=== PATIENT | female | born 1965 | race Caucasian/White ===

== ENCOUNTER 2017-05-19 23:05 | Inpatient (IN) | payer MEDICARE ==
[~2017-05-19] VITALS: Ht 160 cm; Wt 39.2 kg
[2017-05-19] MEDS ORDERED: SODIUM CHLORIDE 0.9% 1,000 ML IV ONE (23:26)
[2017-05-19] MEDS ORDERED: ONDANSETRON 2MG/ML, 2ML IVPush ONE (23:30)
[2017-05-19] MEDS ORDERED: SODIUM CHLORIDE FLUSH 10ML SYR IVF ONE (23:30)
[2017-05-19] MEDS ORDERED: ONDANSETRON 2MG/ML, 2ML ONE (23:33)
[2017-05-19] MEDS ORDERED: morphine SULFATE 10 MG/ML, 1ML ONE (23:34)
[2017-05-19] MEDS: MORPHINE SULFATE 4 MG/ML, 1ML IVPush PRN (23:50)
[2017-05-20] MEDS ORDERED: LEVE500V6 PO
[2017-05-20] MEDS ORDERED: OXCA600T PO (00:01)
[2017-05-20] MEDS ORDERED: METH40TA3 PO (00:01)
[2017-05-20] MEDS ORDERED: DEXT10TA7 PO (00:05)
[2017-05-20 00:25] LABS: DAU SCREEN DISCLAIMER
[2017-05-20 00:31] LABS: PATH.CAST-FLAG NOT PRESENT; SPERM-FLAG NOT PRESENT; SRC-FLAG NOT PRESENT; XTAL-FLAG NOT PRESENT; YLC-FLAG NOT PRESENT
[2017-05-20] MEDS ORDERED: morphine SULFATE 10 MG/ML, 1ML ONE (00:39)
[2017-05-20] MEDS: MORPHINE SULFATE 4 MG/ML, 1ML IVPush PRN (00:44)
[2017-05-20 01:09] LABS: HEMATOCRIT 39.3 % (34.6-47.8); HEMOGLOBIN 13.2 g/dL (11.7-16.4); WHITE BLOOD COUNT 16.6 x10^3/uL (3.4-10)
[2017-05-20 01:11] LABS: DIFF TOTAL CELLS COUNTED 100 CELL DIFF
[2017-05-20 01:30] LABS: ASPARTATE AMINO TRANSFERASE 36 U/L (15-37); BLOOD UREA NITROGEN 16 mg/dL (7-18)
[2017-05-20 01:36] LABS: VERIFY COUNTS? YES
[2017-05-20] MEDS ORDERED: ONDANSETRON 2MG/ML, 2ML IVPush PRN ×2 (02:30→22:30)
[2017-05-20] MEDS ORDERED: hydrALAzine 20 MG/ML, 1ML IVPush PRN (02:30)
[2017-05-20 02:55] VITALS: BP 128/83
[2017-05-20] MEDS: HYDROmorphone 2 MG/ML, 1ML IVPush PRN ×5 (03:24→17:07)
[2017-05-20] MEDS: SODIUM CHLORIDE 0.9% 1,000 ML IV SCH ×2 (03:24→15:36)
[2017-05-20] MEDS ORDERED: LEVETIRACETAM 1,000 MG in SODIUM CHLORIDE 0.9% 100 ML IV SCH (03:30)
[2017-05-20] MEDS: LORazepam 2 MG/ML, 1ML IVPush PRN ×6 (05:56→20:17)
[2017-05-20] MEDS: PANTOPRAZOLE 40 MG IV IVPush SCH (08:00)
[2017-05-20 08:22] VITALS: BP 131/81
[2017-05-20] MEDS ORDERED: VANCOMYCIN PMX 1GM/200ML 200 ML IV ONE (09:00)
[2017-05-20] MEDS ORDERED: ERTAPENEM 1 GM in SODIUM CHLORIDE 0.9% 50 ML IV SCH (09:00)
[2017-05-20] MEDS ORDERED: LINEZOLID PMX 600MG/300ML 300 ML IV SCH (09:00)
[2017-05-20] MEDS: ENOXAPARIN 40 MG/0.4 ML SQ SCH (09:00)
[2017-05-20] MEDS ORDERED: ACETAMINOPHEN 650 MG SUPP ONE (09:13)
[2017-05-20] MEDS: ACETAMINOPHEN 650 MG SUPP PR PRN ×2 (09:19→20:17)
[2017-05-20] MEDS: METHADONE 10 MG TABLET PO SCH ×2 (09:30→21:00)
[2017-05-20] MEDS ORDERED: LEVETIRACETAM 500 MG TABLET PO SCH (09:30)
[2017-05-20] MEDS: OXCARBAZEPINE 150 MG TABLET PO SCH (09:30)
[2017-05-20] MEDS: SODIUM CHLORIDE FLUSH 10ML SYR IVF SCH (10:07)
[2017-05-20] MEDS: LEVETIRACETAM 1,000 MG in SODIUM CHLORIDE 0.9% 100 ML IV SCH (12:02)
[2017-05-20] MEDS ORDERED: LIDOCAINE 1%, 20ML ONE (16:03)
[2017-05-20] MEDS: DAPTOMYCIN 260 MG in SODIUM CHLORIDE 0.9% 100 ML IVPB SCH (16:30)
[2017-05-20 18:03] VITALS: BP 134/76
[2017-05-20 20:00] VITALS: BP 166/100
[2017-05-20] MEDS ORDERED: SUCCINYLCHOLINE 20 MG/ML, 10ML ONE (20:45)
[2017-05-20] MEDS ORDERED: LIDOCAINE-MPF 2% ,5ML ONE (20:45)
[2017-05-20] MEDS ORDERED: PROPOFOL 10 MG/ML, 20ML ONE (20:45)
[2017-05-20] MEDS ORDERED: HYDROmorphone 1 MG/ML, 1ML IV PRN (22:30)
[2017-05-20] MEDS ORDERED: LABETALOL 5MG/ML, 20ML IV PRN (22:30)
[2017-05-20] MEDS ORDERED: LORazepam 2 MG/ML, 1ML IVPush PRN (22:30)
[2017-05-20] MEDS ORDERED: PROMETHAZINE 25 MG/ML, 1ML IV PRN (22:30)
[2017-05-20] MEDS ORDERED: MEPERIDINE/PF 25MG/0.5ML IVPush PRN (22:30)
[2017-05-20] MEDS ORDERED: FENTANYL PF 100 MCG/2ML IV PRN (22:30)
[2017-05-20] MEDS ORDERED: hydrALAzine 20 MG/ML, 1ML IV PRN (22:30)
[2017-05-21 00:14] LABS: GLUCOSE, CSF 88 mg/dL (40-80)
[2017-05-21] MEDS: HYDROmorphone 2 MG/ML, 1ML IVPush PRN ×7 (01:01→22:38)
[2017-05-21] MEDS: LEVETIRACETAM 1,000 MG in SODIUM CHLORIDE 0.9% 100 ML IV SCH ×2 (01:26→12:11)
[2017-05-21] MEDS: OXCARBAZEPINE 150 MG TABLET PO SCH ×3 (01:26→21:00)
[2017-05-21] MEDS: SODIUM CHLORIDE FLUSH 10ML SYR IVF SCH ×3 (01:26→21:00)
[2017-05-21] MEDS: LORazepam 2 MG/ML, 1ML IVPush PRN ×5 (06:23→21:27)
[2017-05-21 06:45] VITALS: BP 154/80
[2017-05-21 07:35] LABS: ASPARTATE AMINO TRANSFERASE 26 U/L (15-37); BLOOD UREA NITROGEN 14 mg/dL (7-18)
[2017-05-21] MEDS: PANTOPRAZOLE 40 MG IV IVPush SCH (07:42)
[2017-05-21] MEDS: ACETAMINOPHEN 650 MG SUPP PR PRN (07:46)
[2017-05-21 07:56] LABS: HEMATOCRIT 36.3 % (34.6-47.8); HEMOGLOBIN 12.2 g/dL (11.7-16.4); WHITE BLOOD COUNT 14.7 x10^3/uL (3.4-10)
[2017-05-21] MEDS: METHADONE 10 MG TABLET PO SCH ×2 (09:08→21:00)
[2017-05-21] MEDS: ENOXAPARIN 40 MG/0.4 ML SQ SCH (09:14)
[2017-05-21] MEDS: SODIUM CHLORIDE 0.9% 1,000 ML IV SCH (09:23)
[2017-05-21] MEDS ORDERED: FILTER 0.22 MICRON FOR PHENYTOIN IV PRN (17:30)
[2017-05-21] MEDS ORDERED: PHENYTOIN SODIUM 1,000 MG in SODIUM CHLORIDE 0.9% 100 ML IV ONE (18:00)
[2017-05-21] MEDS: DAPTOMYCIN 260 MG in SODIUM CHLORIDE 0.9% 100 ML IVPB SCH (18:33)
[2017-05-21 20:00] VITALS: BP 123/73
[2017-05-22] MEDS: LEVETIRACETAM 1,000 MG in SODIUM CHLORIDE 0.9% 100 ML IV SCH ×3 (00:02→23:34)
[2017-05-22] MEDS: LORazepam 2 MG/ML, 1ML IVPush PRN ×2 (01:16→06:45)
[2017-05-22] MEDS: SODIUM CHLORIDE 0.9% 1,000 ML IV SCH ×2 (01:31→14:35)
[2017-05-22 02:00] VITALS: BP 148/84
[2017-05-22] MEDS: HYDROmorphone 2 MG/ML, 1ML IVPush PRN ×2 (03:27→22:10)
[2017-05-22 06:24] LABS: HEMOGLOBIN 13.4 g/dL (11.7-16.4); WHITE BLOOD COUNT 12.7 x10^3/uL (3.4-10)
[2017-05-22 06:32] LABS: BLOOD UREA NITROGEN 9 mg/dL (7-18)
[2017-05-22 06:36] LABS: ASPARTATE AMINO TRANSFERASE 32 U/L (15-37)
[2017-05-22 06:47] VITALS: BP 158/89
[2017-05-22] MEDS: METHADONE 10 MG TABLET PO SCH ×2 (09:00→21:00)
[2017-05-22] MEDS: SODIUM CHLORIDE FLUSH 10ML SYR IVF SCH ×2 (09:00→21:00)
[2017-05-22] MEDS: OXCARBAZEPINE 150 MG TABLET PO SCH ×2 (09:00→21:00)
[2017-05-22] MEDS: PANTOPRAZOLE 40 MG IV IVPush SCH (09:00)
[2017-05-22] MEDS: ENOXAPARIN 40 MG/0.4 ML SQ SCH (09:00)
[2017-05-22] MEDS: CEFAZOLIN PMX 2GM/50ML 50 ML IVPB SCH (16:17)
[2017-05-22 20:00] VITALS: BP 156/78
[2017-05-23] MEDS: CEFAZOLIN PMX 2GM/50ML 50 ML IVPB SCH ×3 (00:13→16:14)
[2017-05-23 02:00] VITALS: BP 143/90
[2017-05-23] MEDS: LORazepam 2 MG/ML, 1ML IVPush PRN ×4 (02:08→17:04)
[2017-05-23] MEDS: SODIUM CHLORIDE 0.9% 1,000 ML IV SCH ×2 (06:38→21:34)
[2017-05-23] MEDS: ENOXAPARIN 40 MG/0.4 ML SQ SCH (08:10)
[2017-05-23] MEDS: PANTOPRAZOLE 40 MG IV IVPush SCH (08:10)
[2017-05-23] MEDS: SODIUM CHLORIDE FLUSH 10ML SYR IVF SCH ×2 (08:53→21:00)
[2017-05-23] MEDS: METHADONE 10 MG TABLET PO SCH ×2 (08:53→21:00)
[2017-05-23] MEDS: OXCARBAZEPINE 150 MG TABLET PO SCH ×2 (08:53→21:00)
[2017-05-23] MEDS: HYDROmorphone 2 MG/ML, 1ML IVPush PRN ×2 (10:55→21:34)
[2017-05-23] MEDS: LEVETIRACETAM 1,000 MG in SODIUM CHLORIDE 0.9% 100 ML IV SCH ×2 (12:31→23:28)
[2017-05-23 22:33] VITALS: BP 136/91
[2017-05-24] MEDS: CEFAZOLIN PMX 2GM/50ML 50 ML IVPB SCH ×3 (00:36→15:41)
[2017-05-24] MEDS: HYDROmorphone 2 MG/ML, 1ML IVPush PRN ×6 (01:58→21:30)
[2017-05-24] MEDS: LORazepam 2 MG/ML, 1ML IVPush PRN ×4 (06:33→21:23)
[2017-05-24 08:27] VITALS: BP 130/82
[2017-05-24] MEDS: ENOXAPARIN 40 MG/0.4 ML SQ SCH (08:55)
[2017-05-24] MEDS: PANTOPRAZOLE 40 MG IV IVPush SCH (08:55)
[2017-05-24] MEDS: METHADONE 10 MG TABLET PO SCH ×2 (08:58→21:00)
[2017-05-24] MEDS: SODIUM CHLORIDE FLUSH 10ML SYR IVF SCH ×2 (08:58→21:33)
[2017-05-24] MEDS: OXCARBAZEPINE 150 MG TABLET PO SCH ×2 (08:58→21:29)
[2017-05-24] MEDS: SODIUM CHLORIDE 0.9% 1,000 ML IV SCH (11:29)
[2017-05-24] MEDS: LEVETIRACETAM 1,000 MG in SODIUM CHLORIDE 0.9% 100 ML IV SCH ×2 (11:29)
[2017-05-24 16:35] VITALS: BP 133/83
[2017-05-24 19:22] VITALS: BP 113/75
[2017-05-25 00:18] VITALS: BP 114/70
[2017-05-25] MEDS: CEFAZOLIN PMX 2GM/50ML 50 ML IVPB SCH ×3 (00:54→16:42)
[2017-05-25] MEDS: SODIUM CHLORIDE 0.9% 1,000 ML IV SCH ×2 (00:54→16:42)
[2017-05-25] MEDS: HYDROmorphone 2 MG/ML, 1ML IVPush PRN ×3 (01:29→10:06)
[2017-05-25 05:31] LABS: HEMATOCRIT 24.9 % (34.6-47.8); HEMOGLOBIN 8.5 g/dL (11.7-16.4); WHITE BLOOD COUNT 6.3 x10^3/uL (3.4-10)
[2017-05-25 05:42] LABS: ASPARTATE AMINO TRANSFERASE 34 U/L (15-37); BLOOD UREA NITROGEN 7 mg/dL (7-18)
[2017-05-25] MEDS: LORazepam 2 MG/ML, 1ML IVPush PRN ×3 (05:54→18:00)
[2017-05-25] MEDS ORDERED: POTASSIUM CHLORIDE 40 MEQ in SODIUM CHLORIDE 0.9% 500 ML IV ONE (06:30)
[2017-05-25 08:03] VITALS: BP 114/72
[2017-05-25] MEDS: PANTOPRAZOLE 40 MG IV IVPush SCH (08:24)
[2017-05-25] MEDS: METHADONE 10 MG TABLET PO SCH ×2 (08:25→20:22)
[2017-05-25] MEDS: ENOXAPARIN 40 MG/0.4 ML SQ SCH (08:25)
[2017-05-25] MEDS: SODIUM CHLORIDE FLUSH 10ML SYR IVF SCH ×2 (08:25→20:21)
[2017-05-25] MEDS: OXCARBAZEPINE 150 MG TABLET PO SCH ×2 (08:25→20:22)
[2017-05-25] MEDS: LEVETIRACETAM 1,000 MG in SODIUM CHLORIDE 0.9% 100 ML IV SCH ×3 (11:31→23:58)
[2017-05-25 13:58] VITALS: BP 117/74
[2017-05-25] MEDS: POTASSIUM CHLORIDE 20 MEQ PACKET PO SCH (17:00)
[2017-05-25] MEDS ORDERED: MAGNESIUM SULFATE PMX 2GM/50ML 50 ML IV ONE (18:00)
[2017-05-25 18:58] VITALS: BP 127/85
[2017-05-25] MEDS ORDERED: hydrALAzine 20 MG/ML, 1ML IVPush PRN (20:00)
[2017-05-25] MEDS ORDERED: ONDANSETRON 2MG/ML, 2ML IVPush PRN (20:00)
[2017-05-25 20:07] LABS: COCCIDIOIDES AB BY CF <1:2 (<1:2)
[2017-05-25] MEDS ORDERED: POTASSIUM PHOSPHATE 44 MEQ in SODIUM CHLORIDE 0.9% 500 ML IV ONE (21:00)
[2017-05-26] MEDS: CEFAZOLIN PMX 2GM/50ML 50 ML IVPB SCH ×3 (00:33→16:12)
[2017-05-26 00:59] VITALS: BP 101/68
[2017-05-26] MEDS: LORazepam 2 MG/ML, 1ML IVPush PRN ×4 (03:59→20:19)
[2017-05-26] MEDS: HYDROmorphone 2 MG/ML, 1ML IVPush PRN ×3 (04:07→17:44)
[2017-05-26 07:07] VITALS: BP 113/70
[2017-05-26 07:33] LABS: HEMATOCRIT 24.2 % (34.6-47.8); HEMOGLOBIN 8.2 g/dL (11.7-16.4); WHITE BLOOD COUNT 6.1 x10^3/uL (3.4-10)
[2017-05-26 07:41] LABS: BLOOD UREA NITROGEN 3 mg/dL (7-18)
[2017-05-26] MEDS: ENOXAPARIN 40 MG/0.4 ML SQ SCH (09:52)
[2017-05-26] MEDS: PANTOPRAZOLE 40 MG IV IVPush SCH (09:53)
[2017-05-26] MEDS: POTASSIUM CHLORIDE 20 MEQ PACKET PO SCH ×2 (09:53→17:51)
[2017-05-26] MEDS: METHADONE 10 MG TABLET PO SCH ×2 (09:53→20:08)
[2017-05-26] MEDS: OXCARBAZEPINE 150 MG TABLET PO SCH ×2 (09:53→20:08)
[2017-05-26] MEDS: SODIUM CHLORIDE 0.9% 1,000 ML IV SCH (09:54)
[2017-05-26] MEDS: SODIUM CHLORIDE FLUSH 10ML SYR IVF SCH ×2 (09:55→20:08)
[2017-05-26] MEDS ORDERED: POTASSIUM PHOSPHATE 44 MEQ in SODIUM CHLORIDE 0.9% 500 ML IV ONE (11:00)
[2017-05-26 12:20] VITALS: BP 99/68
[2017-05-26] MEDS: LEVETIRACETAM 1,000 MG in SODIUM CHLORIDE 0.9% 100 ML IV SCH (13:42)
[2017-05-26] MEDS ORDERED: ACETAMINOPHEN 650 MG SUPP PR PRN (18:30)
[2017-05-26] MEDS ORDERED: ONDANSETRON 2MG/ML, 2ML IVPush PRN (18:30)
[2017-05-26] MEDS ORDERED: hydrALAzine 20 MG/ML, 1ML IVPush PRN (18:30)
[2017-05-26 20:29] VITALS: BP 125/78
[2017-05-27] MEDS: CEFAZOLIN PMX 2GM/50ML 50 ML IVPB SCH ×3 (00:04→16:40)
[2017-05-27] MEDS: D5%-0.45NACL+KCL 20MEQ 1,000 ML IV SCH ×2 (00:04→15:33)
[2017-05-27] MEDS: LEVETIRACETAM 1,000 MG in SODIUM CHLORIDE 0.9% 100 ML IV SCH ×3 (01:26→23:16)
[2017-05-27 03:39] VITALS: BP 134/86
[2017-05-27] MEDS: HYDROmorphone 2 MG/ML, 1ML IVPush PRN ×4 (03:45→19:39)
[2017-05-27 04:51] LABS: HEMATOCRIT 23.5 % (34.6-47.8); WHITE BLOOD COUNT 7.5 x10^3/uL (3.4-10)
[2017-05-27 05:02] LABS: BLOOD UREA NITROGEN 4 mg/dL (7-18)
[2017-05-27 06:42] VITALS: BP 105/69
[2017-05-27] MEDS: PANTOPRAZOLE 40 MG IV IVPush SCH (07:48)
[2017-05-27] MEDS: METHADONE 10 MG TABLET PO SCH ×2 (09:17→21:43)
[2017-05-27] MEDS: POTASSIUM CHLORIDE 20 MEQ PACKET PO SCH (09:17)
[2017-05-27] MEDS: SODIUM CHLORIDE FLUSH 10ML SYR IVF SCH ×2 (09:17→19:40)
[2017-05-27] MEDS: OXCARBAZEPINE 150 MG TABLET PO SCH ×2 (09:17→21:42)
[2017-05-27] MEDS: ENOXAPARIN 40 MG/0.4 ML SQ SCH (09:17)
[2017-05-27] MEDS: LORazepam 2 MG/ML, 1ML IVPush PRN (09:57)
[2017-05-27] MEDS ORDERED: POTASSIUM PHOSPHATE 44 MEQ in SODIUM CHLORIDE 0.9% 500 ML IV ONE (11:00)
[2017-05-27 12:46] VITALS: BP 122/79
[2017-05-27 19:27] VITALS: BP 122/60
[2017-05-28] MEDS: CEFAZOLIN PMX 2GM/50ML 50 ML IVPB SCH ×3 (00:45→18:17)
[2017-05-28 01:11] VITALS: BP 119/75
[2017-05-28] MEDS: HYDROmorphone 2 MG/ML, 1ML IVPush PRN ×3 (02:14→18:18)
[2017-05-28] MEDS: LORazepam 2 MG/ML, 1ML IVPush PRN ×5 (02:22→17:04)
[2017-05-28] MEDS: D5%-0.45NACL+KCL 20MEQ 1,000 ML IV SCH (05:35)
[2017-05-28 05:50] LABS: HEMATOCRIT 25.1 % (34.6-47.8); HEMOGLOBIN 8.8 g/dL (11.7-16.4); WHITE BLOOD COUNT 9.3 x10^3/uL (3.4-10)
[2017-05-28 06:06] LABS: ASPARTATE AMINO TRANSFERASE 48 U/L (15-37); BLOOD UREA NITROGEN 4 mg/dL (7-18)
[2017-05-28 07:30] VITALS: BP 149/81
[2017-05-28] MEDS: PANTOPRAZOLE 40 MG IV IVPush SCH (08:17)
[2017-05-28] MEDS: SODIUM CHLORIDE FLUSH 10ML SYR IVF SCH ×2 (09:00→20:49)
[2017-05-28] MEDS: METHADONE 10 MG TABLET PO SCH ×2 (10:31→20:49)
[2017-05-28] MEDS: OXCARBAZEPINE 150 MG TABLET PO SCH ×2 (10:31→20:49)
[2017-05-28] MEDS: ENOXAPARIN 40 MG/0.4 ML SQ SCH (10:35)
[2017-05-28] MEDS: LEVETIRACETAM 1,000 MG in SODIUM CHLORIDE 0.9% 100 ML IV SCH (12:12)
[2017-05-28 13:44] VITALS: BP 112/74
[2017-05-28 18:51] VITALS: BP 132/76
[2017-05-29] MEDS: LEVETIRACETAM 1,000 MG in SODIUM CHLORIDE 0.9% 100 ML IV SCH ×2 (00:06→12:33)
[2017-05-29] MEDS: D5%-0.45NACL+KCL 20MEQ 1,000 ML IV SCH ×2 (00:06→16:44)
[2017-05-29 02:00] VITALS: BP 121/81
[2017-05-29] MEDS: CEFAZOLIN PMX 2GM/50ML 50 ML IVPB SCH ×3 (02:25→18:11)
[2017-05-29] MEDS: LORazepam 2 MG/ML, 1ML IVPush PRN (03:35)
[2017-05-29] MEDS: HYDROmorphone 2 MG/ML, 1ML IVPush PRN ×2 (04:04→21:51)
[2017-05-29 07:26] VITALS: BP 105/70
[2017-05-29] MEDS: METHADONE 10 MG TABLET PO SCH ×2 (09:30→20:14)
[2017-05-29] MEDS: PANTOPRAZOLE 40 MG IV IVPush SCH (09:30)
[2017-05-29] MEDS: ENOXAPARIN 40 MG/0.4 ML SQ SCH (09:30)
[2017-05-29] MEDS: SODIUM CHLORIDE FLUSH 10ML SYR IVF SCH ×2 (09:30→20:13)
[2017-05-29] MEDS: OXCARBAZEPINE 150 MG TABLET PO SCH ×2 (09:30→20:14)
[2017-05-29 14:24] VITALS: BP 121/82
[2017-05-29 19:18] VITALS: BP 131/82
[2017-05-30] MEDS: LEVETIRACETAM 1,000 MG in SODIUM CHLORIDE 0.9% 100 ML IV SCH ×2 (00:40→13:53)
[2017-05-30 01:56] VITALS: BP 120/76
[2017-05-30] MEDS: CEFAZOLIN PMX 2GM/50ML 50 ML IVPB SCH ×3 (02:27→20:17)
[2017-05-30] MEDS: HYDROmorphone 2 MG/ML, 1ML IVPush PRN ×6 (02:27→20:38)
[2017-05-30 05:30] LABS: HEMOGLOBIN 9.2 g/dL (11.7-16.4); WHITE BLOOD COUNT 12.3 x10^3/uL (3.4-10)
[2017-05-30 05:42] LABS: BLOOD UREA NITROGEN 7 mg/dL (7-18)
[2017-05-30 07:54] VITALS: BP 128/82
[2017-05-30] MEDS: ENOXAPARIN 40 MG/0.4 ML SQ SCH (09:00)
[2017-05-30] MEDS: PANTOPRAZOLE 40 MG IV IVPush SCH (09:35)
[2017-05-30] MEDS: D5%-0.45NACL+KCL 20MEQ 1,000 ML IV SCH (09:35)
[2017-05-30] MEDS: SODIUM CHLORIDE FLUSH 10ML SYR IVF SCH ×2 (09:35→20:19)
[2017-05-30] MEDS: METHADONE 10 MG TABLET PO SCH ×2 (09:36→09:52)
[2017-05-30] MEDS: OXCARBAZEPINE 150 MG TABLET PO SCH ×2 (09:52→20:17)
[2017-05-30] MEDS: LORazepam 2 MG/ML, 1ML IVPush PRN ×2 (13:53→21:14)
[2017-05-30 14:10] VITALS: BP 120/76
[2017-05-30 20:00] VITALS: BP 113/77
[2017-05-31] MEDS: LORazepam 2 MG/ML, 1ML IVPush PRN ×7 (00:26→22:29)
[2017-05-31] MEDS: D5%-0.45NACL+KCL 20MEQ 1,000 ML IV SCH ×2 (00:26→14:40)
[2017-05-31 02:00] VITALS: BP 101/66
[2017-05-31] MEDS: LEVETIRACETAM 1,000 MG in SODIUM CHLORIDE 0.9% 100 ML IV SCH ×2 (02:25→14:39)
[2017-05-31] MEDS: CEFAZOLIN PMX 2GM/50ML 50 ML IVPB SCH ×3 (04:20→20:22)
[2017-05-31 07:47] VITALS: BP 99/67
[2017-05-31] MEDS: PANTOPROZOLE 40MG TABLET PO SCH (08:59)
[2017-05-31] MEDS: METHADONE 10 MG TABLET PO SCH ×2 (08:59→20:22)
[2017-05-31] MEDS: OXCARBAZEPINE 150 MG TABLET PO SCH ×2 (08:59→20:22)
[2017-05-31] MEDS: SODIUM CHLORIDE FLUSH 10ML SYR IVF SCH ×2 (09:20→20:23)
[2017-05-31] MEDS: ENOXAPARIN 40 MG/0.4 ML SQ SCH (09:23)
[2017-05-31 13:13] VITALS: BP 110/73
[2017-05-31 18:47] VITALS: BP 118/68
[2017-06-01 00:27] VITALS: BP 106/73
[2017-06-01] MEDS: LEVETIRACETAM 1,000 MG in SODIUM CHLORIDE 0.9% 100 ML IV SCH (01:45)
[2017-06-01] MEDS: LORazepam 2 MG/ML, 1ML IVPush PRN (01:57)
[2017-06-01] MEDS ORDERED: LORazepam 2 MG/ML, 1ML IM ONE (02:30)
[2017-06-01] MEDS: CEFAZOLIN PMX 2GM/50ML 50 ML IVPB SCH ×2 (04:14→11:33)
[2017-06-01 05:50] LABS: HEMATOCRIT 26.2 % (34.6-47.8); HEMOGLOBIN 8.7 g/dL (11.7-16.4)
[2017-06-01 07:35] VITALS: BP 103/54
[2017-06-01] MEDS: PANTOPROZOLE 40MG TABLET PO SCH (08:32)
[2017-06-01] MEDS: ENOXAPARIN 40 MG/0.4 ML SQ SCH (08:32)
[2017-06-01] MEDS: METHADONE 10 MG TABLET PO SCH (08:33)
[2017-06-01] MEDS: OXCARBAZEPINE 150 MG TABLET PO SCH (08:33)
[2017-06-01] MEDS: SODIUM CHLORIDE FLUSH 10ML SYR IVF SCH (08:35)
[2017-06-01] MEDS: D5%-0.45NACL+KCL 20MEQ 1,000 ML IV SCH (11:01)
[2017-06-01] MEDS ORDERED: LORA2VIA4 IVPush (14:27)
[2017-06-01] MEDS ORDERED: HYDR20VI3 IVPush (14:27)
[2017-06-01] MEDS ORDERED: ENOX40SY4 SQ (14:27)
[2017-06-01] MEDS ORDERED: AMPHETAMINE HOMEMEDPO (14:27)
[2017-06-01] MEDS ORDERED: OXCA150T PO (14:27)
[2017-06-01] MEDS ORDERED: LEVE100S6 IV (14:27)
[2017-06-01] MEDS ORDERED: CEFA2PIG7 IV (14:27)
[2017-06-01] MEDS ORDERED: HYDR2VIA2 IVPush (14:27)
[2017-06-01] MEDS ORDERED: ONDA4VIA4 IVPush (14:27)
[2017-06-01] MEDS ORDERED: PANT40TA5 PO (14:27)
[2017-06-01] MEDS ORDERED: DEXTROAMPHETAMINE HOMEMEDPO (14:27)
[2017-06-01] MEDS ORDERED: ACET650S12 PR (14:27)
[2017-06-01] MEDS ORDERED: FILTER MICRON IV (14:27)
[2017-06-01] MEDS ORDERED: METH-356 PO (14:27)
== END 2017-06-01 15:30 | DRG 871 ==
LOC: ED 23:13 → EDIP 05-20 02:10 → 4NOR 05-20 02:45 → 4EST 05-21 12:27 → 4WST 05-28 03:35
PROVIDERS: ADMIT Family Medicine; ATTEND Family Medicine
PROC: B01B1ZZ Fluoroscopy of Spinal Cord using Low Osmolar Contrast (ICD-10-PCS; 2017-05-20)
PROC: 0T9B70Z Drainage of Bladder with Drainage Device, Via Natural or Artificial Opening (ICD-10-PCS; 2017-05-20)
PROC: 009U3ZX Drainage of Spinal Canal, Percutaneous Approach, Diagnostic (ICD-10-PCS; principal; 2017-05-20 20:00)
DX: A41.01 Sepsis due to Methicillin susceptible Staphylococcus aureus (principal); G93.40 Encephalopathy, unspecified; E43 Unspecified severe protein-calorie malnutrition; G06.1 Intraspinal abscess and granuloma; G93.41 Metabolic encephalopathy; N39.0 Urinary tract infection, site not specified; Z68.1 Body mass index [BMI] 19.9 or less, adult; G40.201 Localization-related (focal) (partial) symptomatic epilepsy and epileptic syndromes with complex partial seizures, not intractable, with status epilepticus; L03.115 Cellulitis of right lower limb; B95.62 Methicillin resistant Staphylococcus aureus infection as the cause of diseases classified elsewhere; E87.6 Hypokalemia; F98.8 Other specified behavioral and emotional disorders with onset usually occurring in childhood and adolescence; G25.5 Other chorea; G89.4 Chronic pain syndrome; I35.8 Other nonrheumatic aortic valve disorders; M46.90 Unspecified inflammatory spondylopathy, site unspecified; M48.061 Spinal stenosis, lumbar region without neurogenic claudication; M50.30 Other cervical disc degeneration, unspecified cervical region; M79.7 Fibromyalgia; R65.20 Severe sepsis without septic shock; Z78.1 Physical restraint status; Z79.899 Other long term (current) drug therapy; Z83.1 Family history of other infectious and parasitic diseases; Z88.0 Allergy status to penicillin; Z88.5 Allergy status to narcotic agent; Z88.8 Allergy status to other drugs, medicaments and biological substances
CPT/HCPCS: 36415; 62270; 70450; 71010; 72156; 72157; 72158; 80048; 80053; 80307; 81001; 81003; 82140; 82306; 82550; 82945; 83605; 83735; 84100; 84157; 85025; 85651; 86140; 86635; 86710; 87040; 87070; 87077; 87086; 87147; 87186; 87205; 89051; 93005; 93306; 93308; 93321; 93325; 95819; 96361; 96374; 96375; 96376; J0690; J0878; J1165; J1170; J1650; J1953; J2020; J2405; J2704; J3480; J3490; C9113; G0479; J0330; J2060; J3475; J7030; J7040

== ENCOUNTER 2018-06-10 07:57 | Emergency (ER) | payer MEDICARE ==
[~2018-06-10] VITALS: Ht 160 cm; Wt 45.9 kg
[~2018-06-10 07:57] MED LIST: ACET650S12 PR; AMPHETAMINE HOMEMEDPO; CEFA2PIG7 IV; DEXT10TA7 PO; DEXTROAMPHETAMINE HOMEMEDPO; ENOX40SY4 SQ; FILTER MICRON IV; HYDR20VI3 IVPush; HYDR2VIA2 IVPush; LEVE100S6 IV; LEVE500V6 PO; LORA2VIA6 IVPush; METH-356 PO; METH40TA3 PO; ONDA4VIA8 IVPush; OXCA150T18 PO; OXCA600T10 PO; PANT40TA5 PO
[2018-06-10 08:54] LABS: MEAN CORPUSCULAR HEMOGLOBIN 30.9 pg (27.0-34.8); MEAN CORPUSCULAR HGB CONC 33.7 g/dL (32.4-35.8); MEAN CORPUSCULAR VOLUME 91.7 fL (80-100); MEAN PLATELET VOLUME 7.9 fL (7.4-10.4); PLATELET COUNT 245 x10^3/uL (130-400); RED BLOOD COUNT 4.34 x10^6/uL (3.82-5.3); RED CELL DISTRIBUTION WIDTH 12.8 % (9.6-15.2)
[2018-06-10 09:01] LABS: INTERNATIONAL NORMALIZED RATIO 1.02 (0.93-1.1); PROTHROMBIN TIME 10.8 Seconds (9.6-11.5)
[2018-06-10 09:04] LABS: ALANINE AMINOTRANSFERASE 58 U/L (12-78); ALBUMIN 4.4 g/dL (3.4-5.0); ANION GAP 8 mmol/L (5-15); CALCIUM 8.2 mg/dL (8.5-10.1); CHLORIDE 106 mmol/L (98-107); CREATININE 0.71 mg/dL (0.55-1.02)
[2018-06-10 09:06] LABS: ALKALINE PHOSPHATASE 79 U/L (45-117); BILIRUBIN,TOTAL 0.4 mg/dL (0.2-1.0); TOTAL PROTEIN 7.4 g/dL (6.4-8.2)
[2018-06-10 09:19] LABS: MD YES
[2018-06-10 09:22] LABS: BAND#(MANUAL) 1.11 x10^3/uL; BANDS%(MANUAL) 6 % (0-7); EOS#(MANUAL) 0.37 x10^3/uL (0.0-0.4); EOS% (MANUAL) 2 % (1-7); LYMPH#(MANUAL) 0.19 x10^3/uL (1-3.4); LYMPHS% (MANUAL) 1 % (22-44); MONOS#(MANUAL) 0.56 x10^3/uL (0.3-2.7); MONOS% (MANUAL) 3 % (2-9); SEG#(MANUAL) 16.28 x10^3/uL (1.8-6.8); SEGS% (MANUAL) 88 % (42-75)
[2018-06-10 09:23] LABS: <PLATELET ESTIMATE> ADEQUATE; <PLT MORPHOLOGY> NORMAL PLT MORPH; <RBC MORPHOLOGY> NORMAL
[2018-06-10 09:49] LABS: RAPID INFLUENZA A Negative (Negative); RAPID INFLUENZA B Negative (Negative)
[2018-06-10 10:25] VITALS: BP 93/55
== END 2018-06-10 10:59 | disposition home or self-care (01) ==
LOC: ED 10:41
DX: J02.0 Streptococcal pharyngitis (principal); G40.909 Epilepsy, unspecified, not intractable, without status epilepticus
CPT/HCPCS: 36415; 71045; 80053; 83605; 85025; 85610; 87400; 87880; 99284

== ENCOUNTER 2018-07-11 16:33 | Outpatient (CLI) | payer MEDICARE ==
[~2018-07-11 16:33] MED LIST changes: -METH-356 PO; +METH10TA2 PO
== END 2018-07-11 23:59 | disposition home or self-care (01) ==
LOC: CFH 16:33
PROVIDERS: ATTEND Physician Assistant
DX: M47.816 Spondylosis without myelopathy or radiculopathy, lumbar region (principal)
CPT/HCPCS: 72110

== ENCOUNTER → 2018-08-20 | Outpatient (CLI) | payer MEDICARE ==
[~2018-08-20] MED LIST changes: +FENTANYL PF 100 MCG/2ML ONE; +FLUMAZENIL 0.1 MG/1 ML, 5ML ONE; +GADOBUTROL 7.5 MMOL/7.5 ML PFS ONE; +MIDAZOLAM 1 MG/ML, 5ML ONE; +NALOXONE 1 MG/ML, 2ML ONE
== END | disposition home or self-care (01) ==
LOC: RAD 09:22
PROVIDERS: ATTEND Internal Medicine
DX: H53.9 Unspecified visual disturbance (principal)
CPT/HCPCS: 70553; 99156; 99157; A9585; J2250; J3010; J2310

== ENCOUNTER → 2018-08-20 | Outpatient (CLI) | payer MEDICARE ==
[~2018-08-20] MED LIST changes: -FENTANYL PF 100 MCG/2ML ONE; -FLUMAZENIL 0.1 MG/1 ML, 5ML ONE; -GADOBUTROL 7.5 MMOL/7.5 ML PFS ONE; -MIDAZOLAM 1 MG/ML, 5ML ONE; -NALOXONE 1 MG/ML, 2ML ONE
== END | disposition home or self-care (01) ==
LOC: RAD 14:42 → EDSTATUS 15:00
PROVIDERS: ATTEND Nurse Practitioner Primary Care
DX: N95.0 Postmenopausal bleeding (principal); Q51.3 Bicornate uterus; M47.26 Other spondylosis with radiculopathy, lumbar region; M47.817 Spondylosis without myelopathy or radiculopathy, lumbosacral region; G89.29 Other chronic pain; G25.5 Other chorea; R56.9 Unspecified convulsions; F41.9 Anxiety disorder, unspecified; Z79.899 Other long term (current) drug therapy
CPT/HCPCS: 76830

== ENCOUNTER 2018-10-03 19:42 | Emergency (ER) | payer MEDICARE ==
[~2018-10-03] VITALS: Ht 160 cm; Wt 46.0 kg
--- NOTE | 2018-10-03 20:04 | NUR ---
YANETH. REPORT FROM EMS. PT C/O FEVER/CHILLS/GENERALIZED PAIN TODAY. PT HAS HX OR MRSA/SEIZURE. PT STATES I HAVE THE SAME S/S WHEN I HAD MRSA. NO FEVER HERE(98.5) AT THIS TIME. ALL MONITORS IN PLACE. CALL LIGHT WITHIN REACH. AWAITING EDMD ASSESSMENT AT THIS TIME.
--- NOTE | 2018-10-03 21:07 | NUR ---
PT PROVIDED URINE CUP FOR UA.
[2018-10-03 21:22] LABS: BASOPHILS % (AUTO) 0 % (0-1); EOSINOPHILS # (AUTO) 0.01 x10^3/uL (0-0.4); EOSINOPHILS % (AUTO) 0 % (1-7); LYMPHOCYTES # (AUTO) 0.72 x10^3/uL (1-3.4); LYMPHOCYTES % (AUTO) 8 % (22-44); MD NO; MEAN CORPUSCULAR HEMOGLOBIN 30.8 pg (27.0-34.8); MEAN CORPUSCULAR VOLUME 90.6 fL (80-100); MEAN PLATELET VOLUME 7.9 fL (7.4-10.4); MONOCYTES # (AUTO) 0.35 x10^3/uL (0.2-0.8); MONOCYTES % (AUTO) 4 % (2-9); NEUTROPHILS # (AUTO) 7.95 x10^3/uL (1.8-6.8); NEUTROPHILS % (AUTO) 88 % (42-75); PLATELET COUNT 309 x10^3/uL (130-400); RED CELL DISTRIBUTION WIDTH 13.5 % (9.6-15.2)
[2018-10-03 21:33] LABS: ALANINE AMINOTRANSFERASE 41 U/L (12-78); ALBUMIN 3.5 g/dL (3.4-5.0); ANION GAP 6 mmol/L (5-15); CALCIUM 8.8 mg/dL (8.5-10.1); CHLORIDE 110 mmol/L (98-107); CREATININE 0.49 mg/dL (0.55-1.02)
[2018-10-03 21:35] LABS: ALKALINE PHOSPHATASE 72 U/L (45-117); BILIRUBIN,TOTAL 0.3 mg/dL (0.2-1.0)
--- NOTE | 2018-10-03 21:35 | NUR ---
PT AMB TO BR WITH STEADY GAIT FOR UA.
--- NOTE | 2018-10-03 22:11 | NUR ---
PT WAS NOT ABLE TO PROVIDE URINE SAMPLE AT THIS TIME. EDMD NOTIFIED.
[2018-10-03 22:48] VITALS: BP 141/85
--- NOTE | 2018-10-03 22:49 | NUR ---
PT GIVEN DC INSTRUCTIONS. PT AMB TO DC WITH STEADY GAIT. NO ACUTE DISTRESS AT DC.
== END 2018-10-03 22:50 | disposition home or self-care (01) ==
LOC: ED 22:44
DX: B34.9 Viral infection, unspecified (principal); Z88.6 Allergy status to analgesic agent; Z88.8 Allergy status to other drugs, medicaments and biological substances; G40.909 Epilepsy, unspecified, not intractable, without status epilepticus
CPT/HCPCS: 36415; 71045; 80053; 83605; 84145; 85025; 87040; 99284

== ENCOUNTER 2019-06-30 09:41 | Emergency (ER) | payer MEDICARE ==
[~2019-06-30] VITALS: Ht 160 cm; Wt 46.0 kg
[~2019-06-30 09:41] MED LIST changes: +ONDA4VIA60 IVPush; -ONDA4VIA8 IVPush
--- NOTE | 2019-06-30 09:55 | NUR ---
emilee. report received from ems. pt c/o right sided sharp cp since this am. denies n/v/d and no cardiac hx. pt's aox4. resps even and unlabored. all monitors in place. call light within reach. nsr rate 80-90's at this time. edmd at bedside to evaluate. pt's at bedside. ekg done at bedside by emt.
[2019-06-30] MEDS ORDERED: SODIUM CHLORIDE FLUSH 10ML SYR IVF ONE (10:00)
[2019-06-30] MEDS ORDERED: KETOROLAC 30 MG/1 ML IVPush ONE (10:00)
[2019-06-30] MEDS ORDERED: KETOROLAC 30 MG/1 ML ONE (10:22)
--- NOTE | 2019-06-30 10:27 | NUR ---
pt medicated per emar. pt tolerated well. pt's aox4. resps even and unlabored.
[2019-06-30 10:41] LABS: BASOPHILS # (AUTO) 0.03 x10^3/uL (0-0.1); BASOPHILS % (AUTO) 0 % (0-1); EOSINOPHILS # (AUTO) 0.06 x10^3/uL (0-0.4); EOSINOPHILS % (AUTO) 1 % (1-7); LYMPHOCYTES # (AUTO) 0.96 x10^3/uL (1-3.4); LYMPHOCYTES % (AUTO) 9 % (22-44); MD NO; MEAN CORPUSCULAR HEMOGLOBIN 30.3 pg (27.0-34.8); MEAN CORPUSCULAR HGB CONC 33.5 g/dL (32.4-35.8); MEAN CORPUSCULAR VOLUME 90.4 fL (80-100); MEAN PLATELET VOLUME 7.9 fL (7.4-10.4); MONOCYTES # (AUTO) 0.71 x10^3/uL (0.2-0.8); MONOCYTES % (AUTO) 7 % (2-9); NEUTROPHILS # (AUTO) 8.57 x10^3/uL (1.8-6.8); NEUTROPHILS % (AUTO) 83 % (42-75); PLATELET COUNT 338 x10^3/uL (130-400); RED BLOOD COUNT 4.16 x10^6/uL (3.82-5.3); RED CELL DISTRIBUTION WIDTH 14.1 % (9.6-15.2)
[2019-06-30 10:42] LABS: HCT (SEDRATE) 37.6 % (34.6-47.8)
[2019-06-30 10:56] LABS: ALBUMIN 3.5 g/dL (3.4-5.0); ANION GAP 7 mmol/L (5-15); CALCIUM 8.6 mg/dL (8.5-10.1); CHLORIDE 103 mmol/L (98-107)
[2019-06-30 11:02] LABS: ALANINE AMINOTRANSFERASE 36 U/L (12-78); ALKALINE PHOSPHATASE 88 U/L (45-117); BILIRUBIN,TOTAL 0.5 mg/dL (0.2-1.0); CREATININE 0.65 mg/dL (0.55-1.02); TOTAL PROTEIN 7.4 g/dL (6.4-8.2); TROPONIN I < 0.015 ng/mL (0.000-0.045)
--- NOTE | 2019-06-30 11:18 | NUR ---
2ND EKG DONE AT BEDSIDE BY EMT.
[2019-06-30 12:11] VITALS: BP 124/69
--- NOTE | 2019-06-30 12:27 | NUR ---
Patient given discharge instructions and they have confirmed that they understand the instructions. Patient ambulatory with steady gait.
== END 2019-06-30 12:28 | disposition home or self-care (01) ==
LOC: ED 12:22
DX: R07.89 Other chest pain (principal); M94.0 Chondrocostal junction syndrome [Tietze]; G40.909 Epilepsy, unspecified, not intractable, without status epilepticus
CPT/HCPCS: 36415; 71046; 80053; 83605; 83880; 84484; 85025; 85379; 85651; 87040; 93005; 96374; 99284; J1885

== ENCOUNTER → 2020-10-13 | Outpatient (CLI) | payer MEDICARE ==
[~2020-10-13] MED LIST changes: -PANT40TA5 PO; +PANT40TA6 PO
== END | disposition home or self-care (01) ==
LOC: RAD 12:53
PROVIDERS: ATTEND Nurse Practitioner Primary Care
DX: M19.012 Primary osteoarthritis, left shoulder (principal)